=== PATIENT | female | born 1945 | race Caucasian/White ===

== ENCOUNTER 2016-11-05 06:49 | Emergency (ER) | payer MEDICARE ==
--- NOTE | 2016-11-08 16:02 | ER ---
ADMIT: 11/05/2016 RM/LOC: ER [facility] MR#: [id number] [id number] [place], [place] [id number] [place] [address] [address] Emergency Room Report SEX: F AGE: 71 : 1945 DATE: 11/05/2016 See T-sheet for complete H and P. ADDENDUM: A 71-year-old female who comes in complaining of spinning sensation that has been present since she woke up this morning. She has had some symptoms consistent with vertigo in the past, but it has not had for some time now. She states that when she bent over, moved her head, her symptoms were significantly worse, and she is improved when she sits still and closes her eyes. She does state that she has had some intermittent ringing in her right ear for some time, but no pain in her ears. She has otherwise been healthy with no recent illness. On examination, she is neurologically intact. The only pertinent finding is she has horizontal nystagmus. She was given Valium and meclizine in the emergency department. Her symptoms were almost completely resolved. She is discharged to home to use Antivert as instructed to follow up with Monisha Roach if not improving and return to the ER for any other concerning symptoms. Karsten Beckett MD/ missy JOB #: [id number] CC: Karsten Beckett MD, Attending Physician UNKNOWN, Family Physician
== END 2016-11-05 08:35 | disposition home or self-care (01) ==
LOC: ER 06:49
DX: R42 Dizziness and giddiness (principal); I10 Essential (primary) hypertension; Z90.49 Acquired absence of other specified parts of digestive tract; Z98.890 Other specified postprocedural states; Z79.899 Other long term (current) drug therapy